=== PATIENT | female | born 1940 | race Caucasian/White ===

== ENCOUNTER 2019-03-29 18:24 | Emergency (ER) | payer MEDICARE, OTHER ==
[~2019-03-29] VITALS: Ht 157.5 cm; Wt 47.6 kg
[2019-03-29 18:35] VITALS: BP 140/76
--- NOTE | 2019-03-29 19:15 | PHYS DOC ---
Past Medical History Past Medical History: Asthma (CAMACHO PHILLIPS APRN) Past Surgical History: No Surgical History (CAMACHO PHILLIPS APRN) Alcohol Use: None Drug Use: None (CAMACHO PHILLIPS APRN) Adult General Chief Complaint Chief Complaint: FINGER INJURY [facility] HPI Patient is a 78 year old female who presents to the ED today complaining of a ring stuck on the left ring finger. Patient reports yesterday she fell down landing on her knees and hitting her left hand on something. She reports this morning she woke up and she had swelling on the left ring finger and ring finger is now stuck. Patient denies hitting her head on the ground when she fell. She is also complaining of slight pain to bilateral knees when she fell. Patient denies any loss of consciousness. Denies hitting her head on the ground. (JACQUELINECAMACHO RITCHIE) Review of Systems Review of Systems Constitutional: Denies fever or chills [] Eyes: Denies change in visual acuity, redness, or eye pain [] HENT: Denies nasal congestion or sore throat [] Respiratory: Denies cough or shortness of breath [] Cardiovascular: No additional information not addressed in HPI [] GI: Denies abdominal pain, nausea, vomiting, bloody stools or diarrhea [] : Denies dysuria or hematuria [] Musculoskeletal: Denies back pain, reports slight pain to bilateral knees and ring stuck on the left ring finger. Integument: Denies rash or skin lesions [] Neurologic: Denies headache, focal weakness or sensory changes [] All other systems were reviewed and found to be within normal limits, except as documented in this note. (CAMACHO PHILLIPS APRN) Physical Exam Physical Exam Constitutional: Well developed, well nourished, no acute distress, non-toxic appearance. [] HENT: Normocephalic, atraumatic, bilateral external ears normal, oropharynx moist, no oral exudates, nose normal. [] Eyes: PERRLA, EOMI, conjunctiva normal, no discharge. [] Neck: Normal range of motion, no tenderness, supple, no stridor. [] Cardiovascular:Heart rate regular rhythm, no murmur [] Lungs & Thorax: Bilateral breath sounds clear to auscultation [] Abdomen: Bowel sounds normal, soft, no tenderness, no masses, no pulsatile mas ses. [] Skin: Warm, dry, no erythema, no rash. [] Back: No tenderness, no CVA tenderness. [] Extremities: Bilateral knees with no obvious deformity, full range of motion bilateral knees. No laxity. +2 bilateral pedal pulses. Left ring finger with a ring stuck on the proximal end. Full range of motion to the left ring finger. Mild swelling noted on the left ring finger from PIP joint going upwards. +2 left radial pulse. Adequate radial, medial, ulnar sensation to the left hand and fingers. Neurologic: Alert and oriented X 3, normal motor function, normal sensory function, no focal deficits noted. [] Psychologic: Affect normal, judgement normal, mood normal. [] (CAMACHO PHILLIPS APRN) Current Patient Data Vital Signs Vital Signs Date Time Temp Pulse Resp B/P (MAP) Pulse Ox O2 Delivery O2 Flow Rate FiO2 03/29/19 18:35 98.0 78 12 140/76 (97) 96 Room Air 98.0 (LAGUNAMAILE REYES DO) EKG EKG [] (CAMACHO PHILLIPS APRN) Radiology/Procedures Radiology/Procedures [] (CAMACHO PHILLIPS APRN) Course & Med Decision Making Course & Med Decision Making Pertinent Labs and Imaging studies reviewed. (See chart for details) This is a 78-year-old male patient presenting to the ED today to to have a ring removed from her left ring finger, she fell down yesterday and had swelling to the left ring finger. Ice was applied to the finger, lubricant was used, ring finger was slid through successfully and removed by me. Patient was d/c to home. Ice elevation recommended. (CAMACHO PHILLIPS APRN) Dragon Disclaimer Dragon Disclaimer This electronic medical record was generated, in whole or in part, using a voice recognition dictation system. (CAMACHO PHILLIPS APRN) Departure Departure Impression: Primary Impression: Tight ring on finger Additional Impressions: Fall Contusion of knee, right Contusion of knee, left Disposition: 01 HOME, SELF-CARE Condition: STABLE Referrals: SOTERO ALLEN (PCP) follow up with your doctor in 1 week Patient Instructions: Fall Prevention and Home Safety Additional Instructions: We removed your ring from the finger. Keep the affected finger iced and elevated for the next 24 hours. You can take [id number] pain remedies as needed. Follow-up with your doctor in one week Attending Signature Attending Signature I have reviewed the PA/CANVAS BASTER's note and plan of care. I was available for consultation as needed at all times during the patient's visit in the emergency department. I agree with the clinical impression, plan and disposition. (MAILE LAGUNA DO) Problem Qualifiers Additional Impressions: Fall Encounter type: initial encounter Qualified Codes: W19.XXXA - Unspecified fall, initial encounter Contusion of knee, right Encounter type: initial encounter Qualified Codes: S80.01XA - Contusion of right knee, initial encounter Contusion of knee, left Encounter type: initial encounter Qualified Codes: S80.02XA - Contusion of left knee, initial encounter CAMACHO PHILLIPS CRUSHER MACHINE OPERATOR Mar 29, 2019 19:15 MAILE LAGUNA DO Mar 31, 2019 19:30
== END 2019-03-29 19:26 | disposition home or self-care (01) ==
LOC: ER 18:24
DX: S80.01XA Contusion of right knee, initial encounter (principal); S80.02XA Contusion of left knee, initial encounter; S60.445A External constriction of left ring finger, initial encounter; J45.909 Unspecified asthma, uncomplicated; W19.XXXA Unspecified fall, initial encounter; Y93.89 Activity, other specified; Y92.89 Other specified places as the place of occurrence of the external cause; Y99.8 Other external cause status
CPT/HCPCS: 99284